=== PATIENT | male | born 2000 | race Caucasian/White ===

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

== ENCOUNTER 2021-11-11 22:50 | Emergency (ER) | payer BC ==
[~2021-11-11] VITALS: Ht 182.8 cm; Wt 95.3 kg
[2021-11-11 22:59] VITALS: BP 132/81
[2021-11-11] MEDS ORDERED: CYCLOBENZAPRINE10 MG PO (23:02)
[2021-11-11] MEDS ORDERED: COLESEVELAM HC625 MG PO (23:02)
[2021-11-11 23:35] LABS: BILIRUBIN Negative (Negative); BLOOD 3+ (Negative); CLARITY Cloudy (Clear); COLOR Red (Yellow); GLUCOSE Negative (Negative); KETONE Trace (Negative); LEUKO ESTERASE 1+ (Negative); NITRITE Negative (Negative); SPECIFIC GRAVITY 1.025 (1.001-1.030)
[2021-11-11 23:41] LABS: RBC TNTC rbc/hpf (0-2)
[2021-11-12] MEDS ORDERED: FLOMAX0.4 MG PO (01:53)
[2021-11-12] MEDS ORDERED: ZOFRAN4 MG PO (01:53)
== END 2021-11-12 01:56 | disposition home or self-care (01) ==
LOC: ED 22:50
PROVIDERS: Internal Medicine
DX: N13.2 Hydronephrosis with renal and ureteral calculous obstruction (principal); Z79.899 Other long term (current) drug therapy

== ENCOUNTER 2021-11-18 18:24 | Emergency (ER) | payer BC ==
[~2021-11-18] VITALS: Ht 180.3 cm; Wt 95.3 kg
[~2021-11-18 18:24] MED LIST changes: +COLESEVELAM HC625 MG PO; +CYCLOBENZAPRINE10 MG PO; +FLOMAX0.4 MG PO; +ZOFRAN4 MG PO
[2021-11-18 18:52] VITALS: BP 148/84
[2021-11-18 19:41] LABS: BASO % 0.1 % (0.0-1.0); HEMATOCRIT 45.1 % (42.0-52.0); LYMPH # 1.4 10*3/uL (1.3-4.4); LYMPH % 6.3 % (27.0-41.0); MEAN CELL VOLUME 86.4 fl (80.0-94.0); MEAN CORPUSCULAR HGB 29.5 pg (27.0-31.0); MEAN CORPUSCULAR HGB CONC 34.1 g/dl (33.0-37.0); MEAN PLATELET VOLUME 8.4 fl (9.6-12.3); MONO % 4.3 % (3.0-9.0); NEUT # 19.8 10*3/uL (2.3-7.9); PLATELET COUNT AUTOMATED 388 10*3/uL (130-400); RED BLOOD COUNT 5.22 10*6/uL (4.50-5.90); RED CELL DISTRI WIDTH 11.9 % (0-14.5); WHITE BLOOD COUNT 22.3 10*3/uL (4.8-10.8)
[2021-11-18 19:53] LABS: BUN 18 mg/dl (7-24); CHLORIDE 103 mmol/L (98-107); CREATININE 1.29 mg/dL (0.70-1.30); POTASSIUM 3.8 mmol/L (3.5-5.1); SODIUM 136 mmol/L (136-145)
[2021-11-18 20:36] LABS: BILIRUBIN Negative (Negative); BLOOD 3+ (Negative); CLARITY Clear (Clear); COLOR Yellow (Yellow); GLUCOSE Negative (Negative); KETONE 3+ (Negative); LEUKO ESTERASE Negative (Negative); NITRITE Negative (Negative); PH 5.5 (4.5-8.0); SPECIFIC GRAVITY >= 1.030 (1.001-1.030)
[2021-11-18 20:46] LABS: MUCOUS 2+; RBC 41-50 rbc/hpf (0-2)
== END 2021-11-18 20:52 | disposition home or self-care (01) ==
LOC: ED 18:24
PROVIDERS: Internal Medicine
DX: N20.9 Urinary calculus, unspecified (principal); Z79.899 Other long term (current) drug therapy

== ENCOUNTER 2025-02-04 19:45 | Emergency (ER) | payer OTHER ==
[~2025-02-04] VITALS: Ht 180.3 cm; Wt 99.8 kg
[2025-02-04 19:53] VITALS: BP 136/78
[2025-02-04] MEDS ORDERED: SODIUM CHLORIDE 0.9% 1,000 ML IV ONE (20:20)
[2025-02-04 21:19] LABS: BILIRUBIN Negative (Negative); BLOOD 3+ (Negative); CLARITY Cloudy (Clear); COLOR Dark Yellow (Yellow); KETONE 1+ (Negative); LEUKO ESTERASE Trace (Negative); NITRITE Negative (Negative); PH 5.5 (4.5-8.0); SPECIFIC GRAVITY 1.025 (1.001-1.030); UROBILINOGEN 1.0 E.U./dl (0.0-1.0)
[2025-02-04 21:27] LABS: BACTERIA 1+; CALCIUM OXALATE CRYSTALS 1+; MUCOUS 2+; RBC 41-50 rbc/hpf (0-2)
[2025-02-04 22:28] LABS: BASO # 0.0 10*3/uL (0.0-0.1); BASO % 0.1 % (0.0-1.0); EOS # 0.0 10*3/uL (0.0-0.4); EOS % 0.0 % (1.0-4.0); MEAN CELL VOLUME 86.8 fl (80.0-94.0); MEAN CORPUSCULAR HGB 28.9 pg (27.0-31.0); MEAN PLATELET VOLUME 8.5 fl (9.6-12.3); MONO # 1.0 10*3/uL (0.1-1.0); MONO % 4.8 % (3.0-9.0); NEUT # 19.0 10*3/uL (2.3-7.9); NEUT % 89.4 % (47.0-73.0); NUCLEATED RED BLOOD CELL 0.0 % (0.0-0.0); NUCLEATED RED BLOOD CELL 0.0 10*3/uL (0.0-0.0); PLATELET COUNT AUTOMATED 376 10*3/uL (130-400); RED CELL DISTRI WIDTH 11.8 % (0-14.5)
[2025-02-04 22:46] LABS: BUN 15 mg/dl (9-23)
[2025-02-04] MEDS ORDERED: HYDROmorphONE Hydrochloride 0.5 MG/0.5 ML SYRINGE IV ONE (23:00)
[2025-02-05] MEDS ORDERED: 'CIPRO500 M1 PO (00:35)
[2025-02-05] MEDS ORDERED: ENDOCET 5-3251 EACH PO (00:35)
[2025-02-05] MEDS ORDERED: Acetaminophen/Oxycodone 5 MG/325 MG TABLET PO ONE (00:40)
== END 2025-02-05 00:47 | disposition home or self-care (01) ==
LOC: ED 19:45
PROVIDERS: Emergency Medicine
DX: N20.0 Calculus of kidney (principal)